=== PATIENT | female | born 1960 | race Caucasian/White ===

== ENCOUNTER 2017-07-02 10:36 | Inpatient (IN) | payer MEDICARE ==
[~2017-07-02] VITALS: Ht 160 cm; Wt 125.9 kg
[2017-07-02] VITALS (7 sets, daily range): BP systolic 152–168; BP diastolic 68–78; PULSE 78–89; RESP 12–20; TEMP 97.9–98.4; O2SAT 92–98
--- NOTE | 2017-07-02 10:53 | PD ---
HPI Chief Complaint: Fall Time Seen by Provider: 10:40 Travel History International Travel<30 days: No Contact w/Intl Traveler<30days: No Traveled to known affect area: No History of Present Illness HPI Patient is a 57-year-old female presents emergency department via [facility] after having a slip and fall in the shower. Her initial history to me as she raised her hands over her head to wash her hair and she felt very dizzy like she was going to pass out, she tried to get out of the shower and slipped and fell hitting her head. Some time later the patient tells me she just had her knees buckled chronic pain and fell backwards and hit her head on the side of the tub. She denies any loss of consciousness only complains of some mild left shoulder pain at this time. Denies any use of blood thinners. PFSH Past Medical History Hx Anticoagulant Therapy: Yes Cardiovascular Problems: Yes Diabetes: Yes Social History Tobacco Use: No Allergies-Medications (Allergen,Severity, Reaction): Coded Allergies: No Known Allergies (Unverified , 07/02/17) Reported Meds & Prescriptions Reported Meds & Active Scripts Active Reported A Thru Z Select Multivit Tab (Multivit-Min/FA/Lycopen/Lutein) 1 Each Tablet 1 Tab PO DAILY Vitamin D3 (Cholecalciferol) 50,000 Unit Cap 50,000 Units PO WEEKLY 28 Days Zyrtec (Cetirizine HCl) 10 Mg Tablet 10 Mg PO DAILY Lantus Inj (Insulin Glargine) 100 Unit/Ml Inj 60 Units SQ HS Metoprolol Tartrate 25 Mg Tab 12.5 Mg PO DAILY Hydralazine HCl 50 Mg Tablet 50 Mg PO BID NEB Tamsulosin (Tamsulosin HCl) 0.4 Mg Cap 0.4 Mg PO HS Review of Systems Except as stated in HPI: all other systems reviewed are Neg Physical Exam Narrative GENERAL: Well-developed morbidly obese female in no obvious distress. Immobilized on a long spineboard, no cervical collar EMS states secondary to neck size. SKIN: Small laceration to the posterior occiput as below. HEAD: No raccoons eyes no sanchez signs, there is some blood in the posterior aspect and after extensive examination could not locate the patient's laceration. Dr. Hunt's arrived shaven part of the patient's head and located 2 cm laceration just beneath the skin fold on the patient's occiput. Normocephalic. EYES: Pupils equal and round. No scleral icterus. No injection or drainage. ENT: No nasal bleeding or discharge. Mucous membranes pink and moist. NECK: Trachea midline. No JVD. CARDIOVASCULAR: Regular rate and rhythm. No murmur appreciated. RESPIRATORY: No accessory muscle use. Clear to auscultation. Breath sounds equal bilaterally. GASTROINTESTINAL: Abdomen soft, non-tender, nondistended. Hepatic and splenic margins not palpable. MUSCULOSKELETAL: No obvious deformities. Patient has full nontender range of motion of all 4 extremities. No tenderness at the shoulder elbow wrist hands hips knees and ankles or feet. Exam of the extremities is somewhat limited by patient habitus. No clubbing. No cyanosis. No edema. NEUROLOGICAL: Awake and alert. Cranial nerves II through XII are grossly intact and nonfocal, 5 out of 5 strength in all 4 extremities, cerebellar testing negative. PSYCHIATRIC: Appropriate mood and affect; insight and judgment normal. Data Data Last Documented VS Vital Signs Date Time Temp Pulse Resp B/P Pulse Ox O2 Delivery O2 Flow Rate FiO2 07/02/17 10:53 94 Room Air 07/02/17 10:39 98.4 81 16 164/74 Orders Electrocardiogram (07/02/17 10:40) Complete Blood Count With Diff (07/02/17 10:40) Comprehensive Metabolic Panel (07/02/17 10:40) Ckmb (Isoenzyme) Profile (07/02/17 10:40) Troponin I (07/02/17 10:40) Chest, Single Ap (07/02/17 10:40) Ct Brain W/O Iv Contrast(Rout) (07/02/17 10:40) Ct Cerv Spine W/O Contrast (07/02/17 10:40) Ecg Monitoring (07/02/17 10:40) Iv Access Insert/Monitor (07/02/17 10:40) Oximetry (07/02/17 10:40) CKMB (07/02/17 10:45) CKMB% (07/02/17 10:45) Consult Neurosurgery (07/02/17 ) Act Partial Throm Time (Ptt) (07/02/17 12:43) Prothrombin Time / Inr (Pt) (07/02/17 12:43) (Hub Use Only)Inp Phy Cons/Ref (07/02/17 ) Vascular Access Team Consult/P PRN (07/02/17 13:13) Vascular Poc Ultrasound (07/02/17 ) Admit Order (Ed Use Only) (07/02/17 ) Labs Laboratory Tests Test 07/02/17 10:45 White Blood Count 5.1 TH/MM3 Red Blood Count 4.54 MIL/MM3 Hemoglobin 11.4 GM/DL Hematocrit 36.0 % Mean Corpuscular Volume 79.3 FL Mean Corpuscular Hemoglobin 25.1 PG Mean Corpuscular Hemoglobin 31.6 % Concent Red Cell Distribution Width 17.9 % Platelet Count 139 TH/MM3 Mean Platelet Volume 8.7 FL Neutrophils (%) (Auto) 78.2 % Lymphocytes (%) (Auto) 11.8 % Monocytes (%) (Auto) 6.8 % Eosinophils (%) (Auto) 3.0 % Basophils (%) (Auto) 0.2 % Neutrophils # (Auto) 4.0 TH/MM3 Lymphocytes # (Auto) 0.6 TH/MM3 Monocytes # (Auto) 0.3 TH/MM3 Eosinophils # (Auto) 0.2 TH/MM3 Basophils # (Auto) 0.0 TH/MM3 CBC Comment DIFF FINAL Differential Comment Sodium Level 137 MEQ/L Potassium Level 4.7 MEQ/L Chloride Level 98 MEQ/L Carbon Dioxide Level 30.0 MEQ/L Anion Gap 9 MEQ/L Blood Urea Nitrogen 23 MG/DL Creatinine 1.05 MG/DL Estimat Glomerular Filtration 54 ML/MIN Rate Random Glucose 227 MG/DL Calcium Level 9.5 MG/DL Total Bilirubin 0.5 MG/DL Aspartate Amino Transf 49 U/L (AST/SGOT) Alanine Aminotransferase 30 U/L (ALT/SGPT) Alkaline Phosphatase 87 U/L Total Creatine Kinase 574 U/L Creatine Kinase MB 16.3 NG/ML Creatine Kinase MB % 2.8 % Troponin I 0.02 NG/ML Total Protein 7.1 GM/DL Albumin 3.2 GM/DL [facility] Medical Decision Making Medical Screen Exam Complete: Yes Emergency Medical Condition: Yes Differential Diagnosis Intracranial hemorrhage, neck injury, coagulopathy. Narrative Course Patient seen and examined by me. Neurologically intact. Slip and fall vs pre- syncopal event. With small SAH discussed with Dr. Chung and will admit to Dr. Blackwell in ICU. Blood pressure platelet count coagulation within normal limits. Critical Care Narrative Aggregate critical care time was 31 minutes. Time to perform other separately billable procedures was not included in the critical care time. My time did not include minutes spent treating any other patients simultaneously or on activities that did not directly contribute to the patient's treatment. The services I provided to this patient were to treat and/or prevent clinically significant deterioration that could result in: , disability, organ failure I provided critical care services requiring my management, as noted below: Chart data review, documentation time, medication orders and management, vital sign assessments/reviewing monitor data, ordering and reviewing lab tests, ordering and interpreting/reviewing x-rays and diagnostic studies, care of the patient and discussion of the patient with the admitting physicians. Diagnosis Primary Impression: Traumatic subarachnoid hemorrhage Additional Impressions: Scalp laceration DM (diabetes mellitus) Morbid obesity Gait instability Fall Admitting Information Admitting Physician Requests: Admit Condition: Stable Blu Guerra MD Jul 02, 2017 10:53
[2017-07-02 11:06] LABS: BASOPHIL % 0.2 % (0.0-2.0); EOSINOPHIL # 0.2 TH/MM3 (0-0.4); HEMO FLAGS DIFF FINAL; LYMPH % 11.8 % (9.0-44.0); LYMPHOCYTE # 0.6 TH/MM3 (1.0-4.8); MEAN CELL VOLUME 79.3 FL (80.0-100.0); MEAN CORPUSCULAR HEMOGLOBIN 25.1 PG (27.0-34.0); MEAN CORPUSCULAR HGB CONC 31.6 % (32.0-36.0); MONO % 6.8 % (0.0-8.0); NEUT % 78.2 % (16.0-70.0); PLATELET COUNT 139 TH/MM3 (150-450); RED BLOOD COUNT 4.54 MIL/MM3 (4.00-5.30); RED CELL DISTRIBUTION WIDTH 17.9 % (11.6-17.2); WHITE BLOOD COUNT 5.1 TH/MM3 (4.0-11.0)
--- NOTE | 2017-07-02 11:15 | RADRPT ---
EXAM DATE/TIME: 07/02/2017 10:49 [facility] COMPARISON: No previous studies available for comparison. INDICATIONS : Palpitations. Right side body pain after fall. MEDICAL HISTORY : Diabetes. Stroke. SURGICAL HISTORY : None. ENCOUNTER: Initial ACUITY: 1 day PAIN SCORE: 10/10 LOCATION: Bilateral chest FINDINGS: Rotated and underinflated portable AP view of the chest demonstrates a normal-sized cardiac silhouett e. Asymmetric density of the lung root is likely related to rotation. There is atelectasis at the l molly bases. No effusion, consolidation, or pneumothorax is identified. Bones and soft tissues demonstr ate no acute finding. EKG lines overlie the patient. CONCLUSION: Rotated and underinflated examination without an acute finding identified. Vishal Prasad MD on July 02, 2017 at 11:13 Board Certified Radiologist. This report was verified electronically.
[2017-07-02] MEDS ORDERED: [UNRECOGNIZED DRUG - CODE] PO (11:18)
[2017-07-02] MEDS ORDERED: TAMS0.4C4 PO (11:18)
[2017-07-02] MEDS ORDERED: METO25TA3 PO (11:18)
[2017-07-02] MEDS ORDERED: HYDR-3800 PO (11:18)
[2017-07-02] MEDS ORDERED: CETI-1 PO (11:18)
[2017-07-02] MEDS ORDERED: LANTUS2P SQ (11:18)
[2017-07-02] MEDS ORDERED: CHOL1CAP34 PO (11:18)
[2017-07-02 11:21] LABS: ALT (GPT) 30 U/L (10-53)
[2017-07-02 11:27] LABS: ALKALINE PHOSPHATASE 87 U/L (45-117); ANION GAP 9 MEQ/L (5-15); AST (GOT) 49 U/L (15-37); BLOOD UREA NITROGEN 23 MG/DL (7-18); CHLORIDE 98 MEQ/L (98-107); CREATINE KINASE 574 U/L (26-192); GLOMERULAR FILTRATION RATE 54 ML/MIN (>89); SODIUM (NA) 137 MEQ/L (136-145); TOTAL BILIRUBIN ADULT 0.5 MG/DL (0.2-1.0)
[2017-07-02 11:29] LABS: POTASSIUM 4.7 MEQ/L (3.5-5.1)
[2017-07-02 11:41] LABS: CKMB 16.3 NG/ML (0.5-3.6)
--- NOTE | 2017-07-02 11:54 | RADRPT ---
EXAM DATE/TIME: 07/02/2017 11:20 [facility] COMPARISON: No previous studies available for comparison. INDICATIONS : Trauma. Fell in the shower. Right posterior head laceration. RADIATION DOSE: 56.39 CTDIvol (mGy) MEDICAL HISTORY : Cardiovascular disease. Diabetes mellitus type 2. SURGICAL HISTORY : Craniotomy. ENCOUNTER: Initial ACUITY: 1 day PAIN SCALE: 8/10 LOCATION: Right cranial TECHNIQUE: Multiple contiguous axial images were obtained of the head. Using automated exposure control and adj ustment of the mA and/or kV according to patient size, radiation dose was kept as low as reasonably a chievable to obtain optimal diagnostic quality images. DICOM format image data is available electro nically for review and comparison. FINDINGS: CEREBRUM: There is generalized atrophy. Ventricles are normal in size. Trace amount of acute blood products, li mike subarachnoid space layering along the sulci in the left parietal high convexity. There is perive ntricular white matter low-attenuation bilaterally. No midline shift, mass lesion, hemorrhage or acut e infarction. No extra-axial fluid collections are seen. POSTERIOR FOSSA: The cerebellum and brainstem demonstrate no acute finding. The 4th ventricle is midline. The cerebe llopontine angle is unremarkable. EXTRACRANIAL: Visualized sinuses are clear. There is a right posterior parietal occipital region scalp hematoma artem suring approximately 5 cm. There is subcutaneous air. SKULL: There has been prior left skull surgery with defect remaining. No evidence of skull fracture. CONCLUSION: 1. Trace acute subarachnoid blood products layering along the sulci in the left parietal high convexi ty. 2. Approximate 5 cm right posterior scalp hematoma with laceration. No fracture is identified. Vishal Prasad MD on July 02, 2017 at 11:49 Board Certified Radiologist. This report was verified electronically.
--- NOTE | 2017-07-02 12:01 | RADRPT ---
EXAM DATE/TIME: 07/02/2017 11:21 [facility] COMPARISON: No previous studies available for comparison. INDICATIONS : Trauma. Fell in the shower. Right posterior head laceration. RADIATION DOSE: 46.30 CTDIvol (mGy) MEDICAL HISTORY : Cardiovascular disease. Diabetes mellitus type 2. SURGICAL HISTORY : None. ENCOUNTER: Initial ACUITY: 1 day PAIN SCALE: 7/10 LOCATION: Right neck TECHNIQUE: Volumetric scanning of the cervical spine was performed. Multiplanar reconstructions in the sagittal, coronal and oblique axial planes were performed. Using automated exposure control and adjustment o f the mA and/or kV according to patient size, radiation dose was kept as low as reasonably achievable to obtain optimal diagnostic quality images. DICOM format image data is available electronically f or review and comparison. FINDINGS: VERTEBRAE: Normal vertebral body height. ALIGNMENT: No evidence of subluxation. C2-C3: The bony spinal canal is normal in size. No evidence of disc bulge or herniation. The neural forami na are bilaterally patent. C3-C4: The bony spinal canal is normal in size. No evidence of disc bulge or herniation. The neural forami na are bilaterally patent. C4-C5: The bony spinal canal is normal in size. No evidence of disc bulge or herniation. The neural forami na are bilaterally patent. C5-C6: The bony spinal canal is normal in size. No evidence of disc bulge or herniation. The neural forami na are bilaterally patent. C6-C7: The bony spinal canal is normal in size. No evidence of disc bulge or herniation. The neural forami na are bilaterally patent. C7-T1: The bony spinal canal is normal in size. No evidence of disc bulge or herniation. The neural forami na are bilaterally patent. CONCLUSION: 1. No acute findings. Mild degenerative change. Narinder Martinez MD on July 02, 2017 at 11:57 Board Certified Radiologist. This report was verified electronically.
[2017-07-02] MEDS ORDERED: MORPHINE SULFATE 8 MG/ML INJ IV PUSH ONE (13:45)
[2017-07-02] MEDS ORDERED: LIDOCAINE 1%/EPINEPHrine 1:100,000 SOLN 20 ML VIAL INFIL ONE (13:45)
--- NOTE | 2017-07-02 13:48 | HHI.HP ---
HPI Service Critical Care Medicine Primary Care Physician Unknown Admission Diagnosis SAH Diagnosis: Travel History International Travel<30 Days: No Contact w/Intl Traveler <30 Da: No Traveled to Known Affected Are: No History of Present Illness 57 yo female with PMH of DM, HTN, obesity states she was in the shower today when "her legs gave out on her" and she fell and hit her head. She denies loss of consciousness. She denies headache, chest pain, shortness of breath, abdominal pain, flank pain, vomiting. No noted seizure activity, no loss of bowel or bladder continence. Ct brain demonstrates trace amount of subarachnoid hemorrhage in the high L parietal convexity and right posterior scalp hematoma. Patient denies anticoagulant use. All other review of systems negative. Past Family Social History Allergies: Coded Allergies: No Known Allergies (Unverified , 07/02/17) Past Medical History Hypertension Diabetes Seasonal allergies Vitamin D deficiency Obesity Gastritis Past Surgical History Tonsillectomy Left carpal tunnel release Cholecystectomy Lumbar surgery 1999 Previous left craniotomy for "a blocked artery" Reported Medications Tamulosin 0.4 mEq by mouth daily at bedtime Metoprolol 12.5 mg by mouth daily Hydralazine 50 mg by mouth twice a day Lantus 60 units subcutaneous daily at bedtime Multivitamin 1 tab daily Zyrtec 10 mg po daily Vitamin D3 50,000 units by mouth weekly Family History Father had lung cancer, prostate cancer, skin cancer removed. at age 79 from myocardial infarction Mother had diabetes and hypertension Social History Smokes a half pack of cigarettes per day for 40 years Drink alcohol occasionally Denies illicit drug use and lives with her . Physical Exam Vital Signs Vital Signs Date Time Temp Pulse Resp B/P Pulse Ox O2 Delivery O2 Flow Rate FiO2 07/02/17 10:53 94 Room Air 07/02/17 10:39 98.4 81 16 164/74 95 Physical Exam Temp 98.4 pulse 88 respirations 16 blood pressure 152/78 GENERAL: Well-nourished, well-developed patient who is laying in the ED stretcher in left lateral decubitus position, tearful, distraught because she has to urinate. SKIN: Warm and dry. HEAD: Atraumatic. Normocephalic. EYES: Pupils equal and round, 2 mm reactive bilaterally. No scleral icterus. No injection or drainage. ENT: No nasal bleeding or discharge. Mucous membranes pink and moist. NECK: Trachea midline. No JVD. CARDIOVASCULAR: Heart sounds are distant but there is regular rate and rhythm with no murmurs rubs or gallops appreciated. RESPIRATORY: Clear to auscultation bilaterally. GASTROINTESTINAL: Abdomen obese, soft, non-tender, nondistended. Bowel sounds present. MUSCULOSKELETAL: Extremities without clubbing, cyanosis. NEUROLOGICAL: Awake and alert. No obvious cranial nerve deficits. Extraocular movements intact. Oral tongue protrusion. Five out of 5 muscle strength in the arms and legs. Normal speech. Oriented to person, year, circumstance Laboratory Laboratory Tests Test 07/02/17 10:45 White Blood Count 5.1 Red Blood Count 4.54 Hemoglobin 11.4 Hematocrit 36.0 Mean Corpuscular Volume 79.3 Mean Corpuscular Hemoglobin 25.1 Mean Corpuscular Hemoglobin 31.6 Concent Red Cell Distribution Width 17.9 Platelet Count 139 Mean Platelet Volume 8.7 Neutrophils (%) (Auto) 78.2 Lymphocytes (%) (Auto) 11.8 Monocytes (%) (Auto) 6.8 Eosinophils (%) (Auto) 3.0 Basophils (%) (Auto) 0.2 Neutrophils # (Auto) 4.0 Lymphocytes # (Auto) 0.6 Monocytes # (Auto) 0.3 Eosinophils # (Auto) 0.2 Basophils # (Auto) 0.0 CBC Comment DIFF FINAL Differential Comment Sodium Level 137 Potassium Level 4.7 Chloride Level 98 Carbon Dioxide Level 30.0 Anion Gap 9 Blood Urea Nitrogen 23 Creatinine 1.05 Estimat Glomerular Filtration 54 Rate Random Glucose 227 Calcium Level 9.5 Total Bilirubin 0.5 Aspartate Amino Transf 49 (AST/SGOT) Alanine Aminotransferase 30 (ALT/SGPT) Alkaline Phosphatase 87 Total Creatine Kinase 574 Creatine Kinase MB 16.3 Creatine Kinase MB % 2.8 Troponin I 0.02 Total Protein 7.1 Albumin 3.2 Result Diagram: 07/02/17 1045 07/02/17 1045 Assessment and Plan Assessment and Plan NEURO: Fall Scalp hematoma Scalp laceration Left parietal traumatic subarachnoid hemorrhage, traumatic CT C-spine negative for acute fracture. Mild degenerative changes CT brain 07/02/17trace subarachnoid hemorrhage left parietal convex city. right posterior hematoma Laceration repaired in ED 07/02. Neurosurgery following, Dr. Chung Repeat CT brain 07/03 Sodium normal. RESP: On room air CV: Hypertension Labetalol as needed for systolic blood pressure greater than 160. Continue tamulosin 0.4 mg by mouth daily at bedtime Continue metoprolol 12.5 mg by mouth daily Continue hydralazine 50 mg by mouth twice a day GI: Morbid obesity Gastritis Protonix 40 mg IV daily for stress ulcer prophylaxis. Bedside swallow assess. Heart healthy diet 1800 ADA FEN/RENAL: Mild renal insufficiency, baseline renal function unknown. Mike inserted in ED. Monitor intake and output. D/c Mike in am. CPK mildly elevated at 574. Repeat BMP and CPK in a.m. 0.9 NaCl at 84 mL per hour ID: Monitor for signs and symptoms of infection. HEME: Chronic anemia Thrombocytopenia, likely chronic Obtain coags Patient is reportedly not on chronic anti-coagulation Obtain CBC in a.m. ENDO: Type 2 Diabetes mellitus Lantus 40 units subcutaneous daily at bedtime, increase to home dose tomorrow if eating well. Medium -dose insulin sliding ac/hs. PROPH: SCDs for DVT prophylaxis. No pharmacologic DVT prophylaxis currently due to acute subarachnoid hemorrhage. Protonix 40 mg IV daily for stress ulcer prophylaxis. ACCESS: Peripheral IV providing adequate access at this time. Out of bed with assistance. PT evaluate and treat Full code Level III H&P Elizabeth Blackwell MD Jul 02, 2017 13:48
[2017-07-02] MEDS ORDERED: LACTULOSE SYRUP 20 GM/30 ML CUP PO PRN (14:00)
[2017-07-02] MEDS ORDERED: RESP: ALBUTEROL 2.5 MG/IPRATROPIUM 0.5 MG NEB (PRN) INH (14:00)
[2017-07-02] MEDS ORDERED: MISCELLANEOUS NURSING INFORMATION XX SCH (14:00)
[2017-07-02] MEDS ORDERED: BISACODYL 10 MG SUPP RECTAL PRN (14:00)
[2017-07-02] MEDS ORDERED: ONDANSETRON HCL 4 MG/2 ML VIAL IV PRN (14:00)
[2017-07-02] MEDS ORDERED: CHLORHEXIDINE GLUCONATE 2 % 1 PACK (2 CLOTHS) TOP PRN (14:00)
--- NOTE | 2017-07-02 14:07 | PD.CONS ---
History of Present Illness Service Neurosurgery Consult Requested By Dr. Guerra-emergency room Reason for Consult Traumatic brain injury Primary Care Physician Unknown Diagnoses: History of Present Illness 57-year-old female states that she fell backwards out of her shower today because her legs gave out on her. She does not believe that she lost consciousness. She had no headache, chest pain, shortness of breath, dizziness , vertigo immediately prior to the incident. No seizure activity reported. She complains of posterior scalp pain. She has a history of diabetic neuropathy with chronic lower extremity numbness and paresthesias, but no acute upper or lower extremity sensorimotor symptoms since her injury. She does have complained of moderate neck pain. She has chronic back pain. No complaint of blurred vision and diplopia speech difficulty confusion and memory loss. Review of Systems Constitutional: DENIES: Fever, Dizziness Eyes: DENIES: Blurred vision, Diplopia Ears, nose, mouth, throat: DENIES: Hearing loss, Vertigo Respiratory: DENIES: Shortness of breath Cardiovascular: DENIES: Chest pain, Palpitations, Syncope Gastrointestinal: DENIES: Abdominal pain, Diarrhea, Nausea, Vomiting Musculoskeletal: COMPLAINS OF: Joint pain, Muscle aches, Back pain, Neck pain Hematologic/lymphatic: DENIES: Bruising Neurologic: COMPLAINS OF: Headache, Paresthesias, DENIES: Abnormal gait, Seizures, Speech Problems Psychiatric: DENIES: Anxiety, Confusion Past Family Social History Allergies: Coded Allergies: No Known Allergies (Unverified , 07/02/17) Past Medical History Hypertension Diabetes Hypercholesterolemia Cardiomyopathy Gastritis Questionable peripheral vascular disease Past Surgical History Cholecystectomy Lumbar surgery 1999 Previous left craniotomy for "a blocked artery" Tonsillectomy Left carpal tunnel release Reported Medications Reported Meds & Active Scripts Active Reported A Thru Z Select Multivit Tab (Multivit-Min/FA/Lycopen/Lutein) 1 Each Tablet 1 Tab PO DAILY Vitamin D3 (Cholecalciferol) 50,000 Unit Cap 50,000 Units PO WEEKLY 28 Days Zyrtec (Cetirizine HCl) 10 Mg Tablet 10 Mg PO DAILY Lantus Inj (Insulin Glargine) 100 Unit/Ml Inj 60 Units SQ HS Metoprolol Tartrate 25 Mg Tab 12.5 Mg PO DAILY Hydralazine HCl 50 Mg Tablet 50 Mg PO BID NEB Tamsulosin (Tamsulosin HCl) 0.4 Mg Cap 0.4 Mg PO HS Family History Negative cardiac disease, cancer. Social History This with her . Recently moved to [place]. Smokes less than 1 pack cigarettes a day for many years. Does not drink alcohol Physical Exam Vital Signs Vital Signs Date Time Temp Pulse Resp B/P Pulse Ox O2 Delivery O2 Flow Rate FiO2 07/02/17 10:53 94 Room Air 07/02/17 10:39 98.4 81 16 164/74 95 Physical Exam GENERAL: Pleasant obese lady, examined in the emergency room. SKIN: Moderate areas of ecchymosis and scaling lesions over the right and left posterior distal calf. Moderate lower extremity varicosities. HEAD: Approximate 3 cm laceration over the right occipital scalp with moderate edema. EYES: Sclerae are clear and nonicteric ENT: Edentulous. No facial edema or ecchymosis. Tympanic membranes clear. No CSF otorrhea or rhinorrhea NECK: Moderate diffuse neck tenderness. Limited range of motion. CARDIOVASCULAR: Regular rate and rhythm without murmurs, gallops, or rubs. RESPIRATORY: Clear to auscultation. Breath sounds equal bilaterally. No wheezes , rales, or rhonchi. GASTROINTESTINAL: Abdomen soft, non-tender, nondistended. No hepato-splenomegaly , or palpable masses. No guarding. MUSCULOSKELETAL: Moderate lower extremity edema with mild to moderate varicosities. Posterior tibial pulses are not palpable, 2+ dorsalis pedis. NEUROLOGICAL: Awake and alert Oriented X 3 Speech is clear Conversant and appropriate Follow simple commands well Answers questions appropriately Reasonable judgment and insight Recent and remote memory are intact No evidence of anxiety or depression Pupils are equal and reactive to accommodation. Extra-ocular movements, visual root to confrontation, facial sensorimotor, tongue, palate, sternocleidomastoid testing, hearing to finger rub testing, and bilateral shoulder shrug are all intact. Sensation is intact to light touch in all extremities except for moderate numbness and paresthesia in the right and left distal lower extremity. She states this is chronic. Strength normal major flexion and extension groups all extremities Magen's absent bilaterally No ankle clonus Plantar responses absent bilateral Fine motor movements intact upper extremities Laboratory Laboratory Tests Test 07/02/17 10:45 White Blood Count 5.1 Red Blood Count 4.54 Hemoglobin 11.4 Hematocrit 36.0 Mean Corpuscular Volume 79.3 Mean Corpuscular Hemoglobin 25.1 Mean Corpuscular Hemoglobin 31.6 Concent Red Cell Distribution Width 17.9 Platelet Count 139 Mean Platelet Volume 8.7 Neutrophils (%) (Auto) 78.2 Lymphocytes (%) (Auto) 11.8 Monocytes (%) (Auto) 6.8 Eosinophils (%) (Auto) 3.0 Basophils (%) (Auto) 0.2 Neutrophils # (Auto) 4.0 Lymphocytes # (Auto) 0.6 Monocytes # (Auto) 0.3 Eosinophils # (Auto) 0.2 Basophils # (Auto) 0.0 CBC Comment DIFF FINAL Differential Comment Sodium Level 137 Potassium Level 4.7 Chloride Level 98 Carbon Dioxide Level 30.0 Anion Gap 9 Blood Urea Nitrogen 23 Creatinine 1.05 Estimat Glomerular Filtration 54 Rate Random Glucose 227 Calcium Level 9.5 Total Bilirubin 0.5 Aspartate Amino Transf 49 (AST/SGOT) Alanine Aminotransferase 30 (ALT/SGPT) Alkaline Phosphatase 87 Total Creatine Kinase 574 Creatine Kinase MB 16.3 Creatine Kinase MB % 2.8 Troponin I 0.02 Total Protein 7.1 Albumin 3.2 Result Diagram: 07/02/17 1045 07/02/17 1045 Imaging 07/02/17 CT scan head and cervical spine images reviewed by the undersigned. Agree with findings as noted below: Head CT 07/02/17 1040 Signed Impressions: Service Date/Time: Sunday, July 02, 2017 11:20 - CONCLUSION: 1. Trace acute subarachnoid blood products layering along the sulci in the left parietal high convexity. 2. Approximate 5 cm right posterior scalp hematoma with laceration. No fracture is identified. Vishal rPasad MD Chest X-Ray 07/02/17 1040 Signed Impressions: Service Date/Time: Sunday, July 02, 2017 10:49 - CONCLUSION: Rotated and underinflated examination without an acute finding identified. Vishal Prasad MD Cervical Spine CT 07/02/17 1040 Signed Impressions: Service Date/Time: Sunday, July 02, 2017 11:21 - CONCLUSION: 1. No acute findings. Mild degenerative change. Narinder Martinez MD Assessment and Plan Assessment and Plan Impression: 1. Traumatic brain injury 2. Right occipital scalp laceration Plan: Findings were discussed with the patient in the emergency room. Discussed with emergency room physician. Admit to intensive care unit Close vital signs and neurologic checks Non-chemical DVT prophylaxis Ulcer prophylaxis. Previous history of gastritis. Out of bed as tolerated Physical therapy assessment for gait Continue antihypertensive medications. Continue diabetic medications with insulin sliding scale. Follow-up CT scan head 07/03/17 Yasmani Chung MD Jul 02, 2017 14:07
[2017-07-02] MEDS: SODIUM CHLOR 0.9% 1000 ML INJ 1,000 ML IV SCH (14:54)
[2017-07-02] MEDS ORDERED: SENNOSIDES 8.6 MG TAB PO PRN (15:00)
[2017-07-02] MEDS ORDERED: MAGNESIUM HYDROXIDE SUSP 30 ML CUP PO PRN (15:00)
--- NOTE | 2017-07-02 15:01 | PD ---
Physical Exam Date Seen by Provider: Jul 02, 2017 Time Seen by Provider: 14:59 Narrative 57-year-old female that presents to the ED for evaluation of head injury. I was asked my attending to repair laceration. Please refer to his note. Data Data Last Documented VS Vital Signs Date Time Temp Pulse Resp B/P Pulse Ox O2 Delivery O2 Flow Rate FiO2 07/02/17 10:53 94 Room Air 07/02/17 10:39 98.4 81 16 164/74 Orders Electrocardiogram (07/02/17 10:40) Complete Blood Count With Diff (07/02/17 10:40) Comprehensive Metabolic Panel (07/02/17 10:40) Ckmb (Isoenzyme) Profile (07/02/17 10:40) Troponin I (07/02/17 10:40) Chest, Single Ap (07/02/17 10:40) Ct Brain W/O Iv Contrast(Rout) (07/02/17 10:40) Ct Cerv Spine W/O Contrast (07/02/17 10:40) Ecg Monitoring (07/02/17 10:40) Iv Access Insert/Monitor (07/02/17 10:40) Oximetry (07/02/17 10:40) CKMB (07/02/17 10:45) CKMB% (07/02/17 10:45) Consult Neurosurgery (07/02/17 ) Act Partial Throm Time (Ptt) (07/02/17 12:43) Prothrombin Time / Inr (Pt) (07/02/17 12:43) (Hub Use Only)Inp Phy Cons/Ref (07/02/17 ) Vascular Access Team Consult/P PRN (07/02/17 13:13) Vascular Poc Ultrasound (07/02/17 ) Admit Order (Ed Use Only) (07/02/17 ) Labs Laboratory Tests Test 07/02/17 10:45 White Blood Count 5.1 TH/MM3 Red Blood Count 4.54 MIL/MM3 Hemoglobin 11.4 GM/DL Hematocrit 36.0 % Mean Corpuscular Volume 79.3 FL Mean Corpuscular Hemoglobin 25.1 PG Mean Corpuscular Hemoglobin 31.6 % Concent Red Cell Distribution Width 17.9 % Platelet Count 139 TH/MM3 Mean Platelet Volume 8.7 FL Neutrophils (%) (Auto) 78.2 % Lymphocytes (%) (Auto) 11.8 % Monocytes (%) (Auto) 6.8 % Eosinophils (%) (Auto) 3.0 % Basophils (%) (Auto) 0.2 % Neutrophils # (Auto) 4.0 TH/MM3 Lymphocytes # (Auto) 0.6 TH/MM3 Monocytes # (Auto) 0.3 TH/MM3 Eosinophils # (Auto) 0.2 TH/MM3 Basophils # (Auto) 0.0 TH/MM3 CBC Comment DIFF FINAL Differential Comment Sodium Level 137 MEQ/L Potassium Level 4.7 MEQ/L Chloride Level 98 MEQ/L Carbon Dioxide Level 30.0 MEQ/L Anion Gap 9 MEQ/L Blood Urea Nitrogen 23 MG/DL Creatinine 1.05 MG/DL Estimat Glomerular Filtration 54 ML/MIN Rate Random Glucose 227 MG/DL Calcium Level 9.5 MG/DL Total Bilirubin 0.5 MG/DL Aspartate Amino Transf 49 U/L (AST/SGOT) Alanine Aminotransferase 30 U/L (ALT/SGPT) Alkaline Phosphatase 87 U/L Total Creatine Kinase 574 U/L Creatine Kinase MB 16.3 NG/ML Creatine Kinase MB % 2.8 % Troponin I 0.02 NG/ML Total Protein 7.1 GM/DL Albumin 3.2 GM/DL [facility] Medical Record Reviewed: Yes Supervised Visit with LOYD: No Procedures Procedure Narrative LACERATION LOCATION: Occipital head LENGTH: 2 cm NUMBER OF STITCHES/MALACHI: 7 Malachi REPAIR: The area of the laceration was prepped with Betadine and sterilely draped. The laceration was infiltrated with 1% Xylocaine. The wound was copiously irrigated and explored without evidence of foreign body, tendon injury or neurovascular injury. The wound was closed using sterile stapler. This was a 1 layer repair. A sterile dressing was applied. The patient was advised to keep the dressing clean and dry. Patient tolerated the procedure well. Mauri Byers Jul 02, 2017 15:01
[2017-07-02] MEDS: PANTOPRAZOLE SODIUM 40 MG VIAL IV SCH (15:02)
[2017-07-02] MEDS ORDERED: LABETALOL HCL 100 MG/20 ML VIAL IV PUSH PRN (15:30)
[2017-07-02 15:45] LABS: PROTHROMBIN TIME - PATIENT 10.8 SEC (9.8-11.6)
[2017-07-02] MEDS ORDERED: DEXTROSE 50% IN WATER 50 ML VIAL(D50) IV PRN (15:45)
[2017-07-02] MEDS ORDERED: GLUCAGON 1 MG/ML VIAL OTHER PRN (15:45)
[2017-07-02] MEDS: INSULIN ASPART SUPPLEMENTAL SCALE SQ SCH ×2 (17:52→21:16)
[2017-07-02] MEDS ORDERED: hydrALAZINE HCL 50 MG TAB PO SCH (20:00)
[2017-07-02] MEDS ORDERED: INSULIN DETEMIR 100 UNITS/ML VIAL SQ SCH (21:00)
[2017-07-02] MEDS: TAMSULOSIN HCL 0.4 MG CAP PO SCH (21:14)
[2017-07-02] MEDS: hydrALAZINE HCL 50 MG TAB PO SCH (21:14)
[2017-07-02] MEDS: DOCUSATE SODIUM 50 MG/SENNA 8.6 MG TAB PO SCH (21:16)
[2017-07-02] MEDS: MORPHINE SULFATE 4 MG/ML INJ IV PRN (23:14)
[2017-07-03] VITALS (9 sets, daily range): BP systolic 131–172; BP diastolic 60–73; PULSE 80–94; RESP 14–24; TEMP 97.9–99; O2SAT 94–98
[2017-07-03] MEDS: SODIUM CHLOR 0.9% 1000 ML INJ 1,000 ML IV SCH ×2 (01:43→07:54)
[2017-07-03] MEDS: MORPHINE SULFATE 4 MG/ML INJ IV PRN ×6 (03:41→20:27)
[2017-07-03] MEDS: CHLORHEXIDINE GLUCONATE 2 % 1 PACK (2 CLOTHS) TOP SCH (04:00)
[2017-07-03 05:21] LABS: BICARBONATE 33.5 MEQ/L (21.0-32.0); POTASSIUM 3.9 MEQ/L (3.5-5.1)
[2017-07-03 05:31] LABS: AUTOMATED NEUTROPHIL # 3.9 TH/MM3 (1.8-7.7); BASOPHIL # 0.1 TH/MM3 (0-0.2); BASOPHIL % 1.2 % (0.0-2.0); EOSINOPHIL # 0.2 TH/MM3 (0-0.4); EOSINOPHIL % 3.7 % (0.0-4.0); HEMATOCRIT 32.8 % (35.0-46.0); HEMO FLAGS DIFF FINAL; LYMPH % 13.5 % (9.0-44.0); LYMPHOCYTE # 0.7 TH/MM3 (1.0-4.8); MEAN CELL VOLUME 77.4 FL (80.0-100.0); MEAN CORPUSCULAR HEMOGLOBIN 25.6 PG (27.0-34.0); MONO % 6.9 % (0.0-8.0); NEUT % 74.7 % (16.0-70.0); PLATELET COUNT 101 TH/MM3 (150-450); RED BLOOD COUNT 4.24 MIL/MM3 (4.00-5.30); RED CELL DISTRIBUTION WIDTH 17.5 % (11.6-17.2); WHITE BLOOD COUNT 5.2 TH/MM3 (4.0-11.0)
[2017-07-03 05:45] LABS: CKMB 17.6 NG/ML (0.5-3.6)
[2017-07-03] MEDS: ACETAMINOPHEN 325 MG TAB PO PRN ×2 (05:59→10:54)
[2017-07-03] MEDS: INSULIN ASPART SUPPLEMENTAL SCALE SQ SCH ×4 (07:00→21:50)
[2017-07-03] MEDS ORDERED: METOPROLOL TARTRATE 25 MG TAB PO SCH (09:00)
[2017-07-03] MEDS: DOCUSATE SODIUM 50 MG/SENNA 8.6 MG TAB PO SCH ×2 (09:02→21:47)
[2017-07-03] MEDS: PANTOPRAZOLE SODIUM 40 MG VIAL IV SCH (09:02)
[2017-07-03] MEDS: hydrALAZINE HCL 50 MG TAB PO SCH ×2 (09:03→21:47)
--- NOTE | 2017-07-03 09:18 | HHI.NSPN ---
(Prabhakar Gutiérrez) History Chief Complaint: Headache, in a bit of a fog. (Prabhakar Gutiérrez) Interval History 07/02: 57-year-old female states that she fell backwards out of her shower today because her legs gave out on her. She does not believe that she lost consciousness. She had no headache, chest pain, shortness of breath, dizziness , vertigo immediately prior to the incident. No seizure activity reported. She complains of posterior scalp pain. She has a history of diabetic neuropathy with chronic lower extremity numbness and paresthesias, but no acute upper or lower extremity sensorimotor symptoms since her injury. She does have complained of moderate neck pain. She has chronic back pain. No complaint of blurred vision and diplopia speech difficulty confusion and memory loss. 07/03: The patient is awake and alert sitting up in a chair when seen this morning. She states that she is doing good but does have a headache. She did say as she was examined that she was in a bit of a fog. (Prabhakar Gutiérrez) System Review Comments Constitutional: Patient denies any fever or chills. Integumentary: Patient states she has a laceration to the back of the head. HEENT: Patient denies any visual or hearing problems. Respiratory: Patient denies any shortness of breath or productive cough. Cardiovascular: Patient denies any chest pain, palpitations or irregular heartbeat. Gastrointestinal: Patient denies any abdominal pain, nausea, vomiting or incontinence of stool. Genitourinary: Patient states she has a Mike catheter in place. Musculoskeletal: Patient complains of upper neck and chronic lower back pain. She also states she has chronic pain to the left arm. She denies any other extremity pain. Neurologic: Patient complains of a headache. She also has numbness to the distal fingertips of the right hand which is chronic and without change. She denies dizziness, tingling or other numbness. (Prabhakar Gutiérrez) Exam Results Vital Signs Date Time Temp Pulse Resp B/P Pulse Ox O2 Delivery O2 Flow Rate FiO2 07/03/17 07:38 94 Nasal Cannula 2.00 07/03/17 06:59 12 07/03/17 04:00 98.0 94 140/60 07/02/17 14:05 21 Intake and Output 07/02/17 07/02/17 07/03/17 08:00 16:00 00:00 Intake Total 240 ml Output Total 1400 ml Balance -1160 ml (Prabhakar Gutiérrez) Physical Examination GENERAL: Pleasant obese lady sitting in chair, no apparent distress, affect normal. SKIN: Abrasions noted to right side extremities healing w/o complication, peripheral vascular skin changes to bilateral lower legs with scaling lesions. HEENT: Right occipital scalp laceration edematous and approximated w/wenceslao moderately TTP. PERRLA, EOMI. No otorrhea or rhinorrhea noted. MMM & pink. NECK: Midline cervical spine moderately TTP, decreased ROM, neck supple, no JVD , trachea midline. CARDIOVASCULAR: S1S2 w/RRR w/o M/G/R, radial pulses 2+ bilaterally, unable to palpate pedal or posterior tibial pulses, cap refill < 2 sec, pitting edema bilateral lower extremities, bilateral peripheral vascular skin changes. Monitor is sinus rhythm w/o any ectopy noted. RESPIRATORY: CTAB w/o W/R/R, equal excursion, nonlaboured, on RA. GASTROINTESTINAL: Abdomen morbidly obese, nontender, bowel sounds not appreciated. GENITOURINARY: Mike catheter to BSD w/clear yellow urine. MUSCULOSKELETAL: GRIMM w/o difficulty, left arm TTP chronically, RUE mildly TTP from fall. NEUROLOGICAL: AAOx3. Speech clear & appropriate although slow in responding to more complex issues such as what happened. Follows simple commands w/o difficulty. CN II-XII grossly intact. Sensation to light touch intact to all extremities except decreased to distal fingertips of right hand distal lower legs. Motor strength 5/5 to all major flexion and extension muscle group. (Prabhakar Gutiérrze) Lab, Micro, Other Results Allergies Coded Allergies Type Severity Reaction Last Updated Verified No Known Allergies 07/02/17 No Recent Impressions Head CT 07/02/17 1040 Signed Impressions: Service Date/Time: Sunday, July 02, 2017 11:20 - CONCLUSION: 1. Trace acute subarachnoid blood products layering along the sulci in the left parietal high convexity. 2. Approximate 5 cm right posterior scalp hematoma with laceration. No fracture is identified. Vishal Prasad MD Chest X-Ray 07/02/17 1040 Signed Impressions: Service Date/Time: Sunday, July 02, 2017 10:49 - CONCLUSION: Rotated and underinflated examination without an acute finding identified. Vishal Prasad MD Cervical Spine CT 07/02/17 1040 Signed Impressions: Service Date/Time: Sunday, July 02, 2017 11:21 - CONCLUSION: 1. No acute findings. Mild degenerative change. Narinder Martinez MD 07/01/// 06:00 18:00 06:00 18:00 06:00 18:00 Intake Total 240 ml Output Total 1400 ml Balance -1160 ml Intake Oral 240 ml Output Urine Total 1400 ml # Bowel Movements 0 Laboratory Tests Test 07/02/17 07/02/17 07/03/17 10:45 14:45 04:33 White Blood Count 5.1 TH/MM3 5.2 TH/MM3 Red Blood Count 4.54 MIL/MM3 4.24 MIL/MM3 Hemoglobin 11.4 GM/DL 10.8 GM/DL Hematocrit 36.0 % 32.8 % Mean Corpuscular Volume 79.3 FL 77.4 FL Mean Corpuscular Hemoglobin 25.1 PG 25.6 PG Mean Corpuscular Hemoglobin 31.6 % 33.0 % Concent Red Cell Distribution Width 17.9 % 17.5 % Platelet Count 139 TH/MM3 101 TH/MM3 Mean Platelet Volume 8.7 FL 9.3 FL Neutrophils (%) (Auto) 78.2 % 74.7 % Lymphocytes (%) (Auto) 11.8 % 13.5 % Monocytes (%) (Auto) 6.8 % 6.9 % Eosinophils (%) (Auto) 3.0 % 3.7 % Basophils (%) (Auto) 0.2 % 1.2 % Neutrophils # (Auto) 4.0 TH/MM3 3.9 TH/MM3 Lymphocytes # (Auto) 0.6 TH/MM3 0.7 TH/MM3 Monocytes # (Auto) 0.3 TH/MM3 0.4 TH/MM3 Eosinophils # (Auto) 0.2 TH/MM3 0.2 TH/MM3 Basophils # (Auto) 0.0 TH/MM3 0.1 TH/MM3 CBC Comment DIFF FINAL DIFF FINAL Differential Comment Sodium Level 137 MEQ/L 137 MEQ/L Potassium Level 4.7 MEQ/L 3.9 MEQ/L Chloride Level 98 MEQ/L 97 MEQ/L Carbon Dioxide Level 30.0 MEQ/L 33.5 MEQ/L Anion Gap 9 MEQ/L 7 MEQ/L Blood Urea Nitrogen 23 MG/DL 18 MG/DL Creatinine 1.05 MG/DL 0.92 MG/DL Estimat Glomerular Filtration 54 ML/MIN 62 ML/MIN Rate Random Glucose 227 MG/DL 173 MG/DL Calcium Level 9.5 MG/DL 9.3 MG/DL Total Bilirubin 0.5 MG/DL Aspartate Amino Transf 49 U/L (AST/SGOT) Alanine Aminotransferase 30 U/L (ALT/SGPT) Alkaline Phosphatase 87 U/L Total Creatine Kinase 574 U/L 857 U/L Creatine Kinase MB 16.3 NG/ML 17.6 NG/ML Creatine Kinase MB % 2.8 % 2.1 % Troponin I 0.02 NG/ML Total Protein 7.1 GM/DL Albumin 3.2 GM/DL Prothrombin Time 10.8 SEC Prothromb Time International 1.0 RATIO Ratio Activated Partial 23.0 SEC Thromboplast Time Hematology Comments Vital Signs Date Time Temp Pulse Resp B/P Pulse Ox O2 Delivery O2 Flow Rate FiO2 07/03/17 07:38 94 Nasal Cannula 2.00 07/03/17 06:59 12 07/03/17 06:04 20 07/03/17 04:00 98.0 94 24 140/60 96 07/03/17 00:00 80 07/03/17 00:00 97.9 80 14 151/68 96 07/02/17 23:00 97.9 78 12 156/69 98 07/02/17 21:36 95 Nasal Cannula 2.00 07/02/17 19:28 78 18 168/73 95 Nasal Cannula 2 07/02/17 16:04 87 20 152/68 95 07/02/17 14:05 21 07/02/17 14:00 89 20 152/78 92 07/02/17 10:53 94 Room Air 07/02/17 10:39 98.4 81 16 164/74 95 (Prabhakar Gutiérrez) Medical Decision Making Impression and Plan Impression: 1. Traumatic brain injury 2. Right occipital scalp laceration CT brain pending. Patient doing well and remains neurologically intact. Plan: Discussed plan of care w/patient. Primary management per [employer] Operator/Hospitalist. Frequent neuro checks. Stat CT brain for any worsening neuro status. Non-chemical DVT prophylaxis Ulcer prophylaxis. Mobilise patient w/PRN assistance Physical therapy assessment for gait Continue antihypertensive medications. Continue diabetic medications with insulin sliding scale. Follow-up CT scan head 07/03/17 (Prabhakar Gutiérrez) Attending Statement I have personally seen and examined the patient on 07/03/2017. Pertinent documentation and study results have been reviewed by the undersigned. I have personally developed the treatment plan and performed medical decision making. Agree with findings, exam, and treatment plan as noted above. Patient awake, mild lethargy. Mild slowing of speech and thought processes Somewhat impaired judgment and insight. Mild difficulty with recent remote memory. Follow simple commands well No significant dysarthria Extraocular movements intact Sensorimotor function intact all extremities 07/03/2017 CT scan head without evidence of significant residual hemorrhage, subarachnoid hemorrhage, edema. No mass effect. Previous craniotomy Discussed with patient on 07/03/2017 Continue therapy Stable for discharge from neurosurgical standpoint (Yasmani Chung MD) Prabhakar Gutiérrez Jul 03, 2017 09:18 Yasmani Chung MD Jul 05, 2017 22:05
[2017-07-03] MEDS ORDERED: REQU3TAB PO (09:22)
--- NOTE | 2017-07-03 11:43 | EKG ---
Date Performed: 07/02/2017 Time Performed: 11:03:08 PTAGE: 57 years EKG: Sinus rhythm WITH FIRST DEGREE AV BLOCK POSSIBLE ANTERIOR MYOCARDIAL INFARCTION ABNORMAL ECG NO PREVIOUS TRACING DOCTOR: Theo Carrillo Interpretating Date/Time 07/03/2017 11:42:35
[2017-07-03] MEDS ORDERED: PILL SPLITTER OTHER PRN (12:00)
--- NOTE | 2017-07-03 12:42 | RADRPT ---
EXAM DATE/TIME: 07/03/2017 10:39 [facility] COMPARISON: CT BRAIN W/O CONTRAST, July 02, 2017, 11:20. INDICATIONS : Post traumatic subarachnoid hematoma RADIATION DOSE: 47.97 CTDIvol (mGy) MEDICAL HISTORY : Cardiovascular disease. Diabetes mellitus type 2. SURGICAL HISTORY : Craniotomy ENCOUNTER: Subsequent ACUITY: 3 days PAIN SCALE: 5/10 LOCATION: cranial TECHNIQUE: Multiple contiguous axial images were obtained of the head. Using automated exposure control and adj ustment of the mA and/or kV according to patient size, radiation dose was kept as low as reasonably a chievable to obtain optimal diagnostic quality images. DICOM format image data is available electro nically for review and comparison. FINDINGS: CEREBRUM: The ventricles are normal for age. No evidence of midline shift, mass lesion, hemorrhage or acute in farction. No extra-axial fluid collections are seen. POSTERIOR FOSSA: The cerebellum and brainstem are intact. The 4th ventricle is midline. The cerebellopontine angle i s unremarkable. EXTRACRANIAL: The visualized portion of the orbits is intact. SKULL: The calvaria is intact. No evidence of skull fracture. CONCLUSION: Negative for an acute process. Previous surgery on the left for subdural with resolu tion of the previously described hemorrhage. Adrian Mcpherson MD FACR on July 03, 2017 at 12:39 Board Certified Radiologist. This report was verified electronically.
--- NOTE | 2017-07-03 15:09 | PD.TRANSFR ---
Transfer Summary Admission Date Jul 02, 2017 at 13:35 Transfer Date: Jul 03, 2017 Admitting Diagnosis Traumatic SAH Fall Scalp laceration DM HTN Obesity Diagnoses: (1) Fall Diagnosis: Principal (2) HTN (hypertension) Diagnosis: Secondary (3) DM (diabetes mellitus) (4) Gait instability Diagnosis: Secondary (5) Scalp laceration Diagnosis: Principal (6) Traumatic subarachnoid hemorrhage Diagnosis: Principal (7) Morbid obesity Diagnosis: Secondary Significant Findings Last [address] 07/03/17 0400 Signed Impressions: Service Date/Time: Monday, July 03, 2017 10:39 - CONCLUSION: Negative for an acute process. Previous surgery on the left for subdural with resolution of the previously described hemorrhage. Adrian Mcpherson MD FACR Head CT 07/02/17 1040 Signed Impressions: Service Date/Time: Sunday, July 02, 2017 11:20 - CONCLUSION: 1. Trace acute subarachnoid blood products layering along the sulci in the left parietal high convexity. 2. Approximate 5 cm right posterior scalp hematoma with laceration. No fracture is identified. Vishal Prasad MD Chest X-Ray 07/02/17 1040 Signed Impressions: Service Date/Time: Sunday, July 02, 2017 10:49 - CONCLUSION: Rotated and underinflated examination without an acute finding identified. Vishal Prasad MD Cervical Spine CT 07/02/17 1040 Signed Impressions: Service Date/Time: Sunday, July 02, 2017 11:21 - CONCLUSION: 1. No acute findings. Mild degenerative change. Narinder Martinez MD Transfer Summary/Subjective 57 yo female with PMH of DM, HTN, obesity states she was in the shower today when "her legs gave out on her" and she fell and hit her head. She denies loss of consciousness. She denies headache, chest pain, shortness of breath, abdominal pain, flank pain, vomiting. No noted seizure activity, no loss of bowel or bladder continence. Ct brain demonstrates trace amount of subarachnoid hemorrhage in the high L parietal convexity and right posterior scalp hematoma. Patient denies anticoagulant use. All other review of systems negative. Subjective: 07/03 Pt complained of R arm and leg numbness to me that she states occurred earlier today. She did not notice weakness or change in speech. She is L hand dominant. She later denied this symptom but it appeared she may have changed the story because she wants to be discharged home. Physical therapy also documented this complaint in their note. Was out of bed to chair today but requires minimum one person assist. PT recommending acute inpatient rehabilitation versus home health rehabilitation. Patient is adamant she wants to be discharged home but I discussed with concerns regarding safe disposition given her difficulty with ambulation. She is adamant that I call her daughter to come pick her up. Her daughter states that she was just recently moved out of an [facility] on 06/27 and was getting home health PT there. She moved to her daughter and son-in-law's house on 06/27 and PT has not been set up there. Her daughter agrees with acute rehab placement because she says her mother has fallen twice and that she is unstable. She says she is unable to take her home right now; needs to get shower chair and other items. Pt does have a cane and walker at home. Daughter states she will speak with her mother about going to rehab. Discussed with Tisha with case management and she states patient has Medicare and should be able to get acute rehab placement. Objective Vital Signs Date Time Temp Pulse Resp B/P Pulse Ox O2 Delivery O2 Flow Rate FiO2 07/03/17 12:22 20 07/03/17 12:00 98.4 84 131/64 95 07/03/17 07:38 Nasal Cannula 2.00 07/03/17 07:00 21 Intake and Output 07/02/17 07/02/17 07/02/17 07:59 15:59 23:59 Intake Total 240 ml Output Total 1400 ml Balance -1160 ml Result Diagram: 07/03/17 0433 07/03/17 0433 Objective Remarks GENERAL: Well-nourished, well-developed patient who is sitting up in bed. SKIN: Warm and dry. HEAD: Atraumatic. Normocephalic. EYES: Pupils equal and round, 2 mm reactive bilaterally. No scleral icterus. No injection or drainage. ENT: No nasal bleeding or discharge. Mucous membranes pink and moist. NECK: Trachea midline. No JVD. CARDIOVASCULAR: Heart sounds are distant but there is regular rate and rhythm with no murmurs rubs or gallops appreciated. RESPIRATORY: Clear to auscultation bilaterally. GASTROINTESTINAL: Abdomen obese, soft, non-tender, nondistended. Bowel sounds present. MUSCULOSKELETAL: Extremities without clubbing, cyanosis. NEUROLOGICAL: Awake and alert. No obvious cranial nerve deficits. Extraocular movements intact. Oral tongue protrusion. No facial droop. 4+/5 biceps/ triceps bilaterally. 5/5 plantar flexion bilaterally. She reports intact sensation to soft touch/temperature BUE and BLE. Speech is baseline. Oriented to person, year, circumstance Procedures scalp laceration repair with wenceslao per Mauri Byers in ED. Urinary Catheter: Yes Assessment to: Remove Date of Insertion: Jul 02, 2017 Date of Removal: Jul 03, 2017 Vascular Central Line Catheter: No A/P Problem List: (1) Morbid obesity ICD Code: E66.01 Status: Chronic (2) Fall ICD Code: W19.XXXA Status: Acute (3) HTN (hypertension) ICD Code: I10 Status: Acute (4) DM (diabetes mellitus) ICD Code: E11.9 Status: Acute (5) Gait instability ICD Code: R26.81 Status: Chronic (6) Scalp laceration ICD Code: S01.01XA Status: Acute (7) Traumatic subarachnoid hemorrhage ICD Code: S06.6X9A Status: Acute Assessment and Plan NEURO: Fall Scalp hematoma Scalp laceration and hematoma Left parietal traumatic subarachnoid hemorrhage, traumatic h/o craniotomy for L subdural CT C-spine negative for acute fracture. Mild degenerative changes CT brain 07/02/17trace subarachnoid hemorrhage left parietal convex [place]. right posterior hematoma Laceration repaired in ED 07/02 with wenceslao. Will need staple removal 07/08. Neurosurgery following, Dr. Chung Repeat CT brain 07/03 with resolution of traumatic subarachnoid hemorrhage. Sodium normal. She denies sx of orthostasis. ?TIA - she reports transient numbness of right upper and right lower extremity. These symptoms did not occur with her original fall, they occurred at some point earlier this morning. She is a somewhat difficult historian and story seems to change. In view of possible TIA symptoms as well as recent gait disturbance will obtain MRI. Also obtain carotid u/s, echo, lipids. RESP: On room air CV: Hypertension Labetalol as needed for systolic blood pressure greater than 160. Continue tamulosin 0.4 mg by mouth daily at bedtime Increase metoprolol 12.5 mg by mouth bid Continue hydralazine 50 mg by mouth twice a day GI: Morbid obesity past h/o Gastritis Change protonix to po. Bedside swallow assessed. Heart healthy diet 1800 ADA FEN/RENAL: Mild renal insufficiency, baseline renal function unknown. Mike inserted in ED. Monitor intake and output. D/c Mike ordered for this morning, discussed with RN. CPK mildly elevated at 574, repeat 857. Likely secondary to fall. KVO IVF ID: Monitor for signs and symptoms of infection. HEME: Chronic anemia Thrombocytopenia, likely chronic Obtain coags Patient was not on chronic anti-coagulation ENDO: Type 2 Diabetes mellitus Increase Detemir to home dose of 60 units subcutaneous daily at bedtime Medium -dose insulin sliding ac/hs. PROPH: SCDs for DVT prophylaxis. No pharmacologic DVT prophylaxis currently due to acute subarachnoid hemorrhage. ACCESS: Peripheral IV providing adequate access at this time. Out of bed with assistance. PT with ongoing evaluation and treatment. Transfer patient to floor. Hospitalist to assume care 07/04. Discussed with neurosurgery. Discussed with bedside nurse and case management. Patient and her daughter updated in detail. I recommend acute rehab if patient will agree to it. Daughter assisting in convincing her. Full code Level II Elizabeth Blackwell MD Jul 03, 2017 15:09
[2017-07-03] MEDS ORDERED: BUMETANIDE INJ 1 MG/4 ML VIAL IV PUSH ONE (16:30)
--- NOTE | 2017-07-03 21:42 | RADRPT ---
EXAM DATE/TIME: 07/03/2017 20:15 [facility] COMPARISON: No previous studies available for comparison. INDICATIONS : Transient ischemic attack. MEDICAL HISTORY : Arthritis. Gastritis. CVA. Diabetes. Paresthesia. SURGICAL HISTORY : Cholecystectomy. Lumbar surgery. ENCOUNTER: Initial ACUITY: 1 day PAIN SCORE: 0/10 LOCATION: Bilateral neck PEAK SYSTOLIC VELOCITIES (cm/sec): ICA/CCA RATIO: Right: 1.1 Left: 0.6 ICA: Right: 106 Left: 60 CCA: Right: 105 Left: 107 ECA: Right: 178 Left: 179 VERTEBRAL: Right: 153 retrograde Left: 75 antegrade Elevated flow velocities and ICA/CCA ratios have been found to correlate with increased degrees of vessel stenosis, calculated as percentage of diameter relative to a normal segment of distal ICA/CCA FINDINGS: RIGHT CAROTID: No significant stenosis is visualized. The waveforms are not well delineated. LEFT CAROTID: Calcified plaque in the bulb and proximal internal carotid artery. The waveforms are not well deline ated. VERTEBRAL ARTERIES: Antegrade flow is seen in both vertebral arteries. CONCLUSION: Limited examination with inability to obtain quality waveforms. The no significant widening of the c arotid waveforms that are obtained. Velocity profile is within normal limits, characteristic of less than 50% stenosis. Danilo Miner MD on July 03, 2017 at 21:37 Board Certified Radiologist. This report was verified electronically.
[2017-07-03] MEDS: TAMSULOSIN HCL 0.4 MG CAP PO SCH (21:47)
[2017-07-03] MEDS: METOPROLOL TARTRATE 25 MG TAB PO SCH (21:48)
[2017-07-03] MEDS: INSULIN DETEMIR 100 UNITS/ML VIAL SQ SCH (21:51)
[2017-07-04] VITALS (10 sets, daily range): BP systolic 148–165; BP diastolic 63–70; PULSE 70–79; RESP 12–24; TEMP 98.3–98.8; O2SAT 91–100
[2017-07-04] MEDS: MORPHINE SULFATE 4 MG/ML INJ IV PRN ×4 (01:26→16:36)
[2017-07-04] MEDS: CHLORHEXIDINE GLUCONATE 2 % 1 PACK (2 CLOTHS) TOP SCH (04:00)
[2017-07-04] MEDS: INSULIN ASPART SUPPLEMENTAL SCALE SQ SCH ×4 (06:46→21:16)
[2017-07-04] MEDS: PANTOPRAZOLE SOD 40 MG DELAYED RELEASE TAB PO SCH (08:15)
[2017-07-04] MEDS: METOPROLOL TARTRATE 25 MG TAB PO SCH ×2 (08:15→21:10)
[2017-07-04] MEDS: DOCUSATE SODIUM 50 MG/SENNA 8.6 MG TAB PO SCH ×2 (08:15→21:10)
[2017-07-04] MEDS: hydrALAZINE HCL 50 MG TAB PO SCH ×2 (08:16→21:10)
[2017-07-04] MEDS ORDERED: LISINOPRIL 10 MG TAB PO SCH (09:00)
--- NOTE | 2017-07-04 10:16 | HHI.NSPN ---
(Prabhakar Gutiérrez) History Chief Complaint: Pain to the back of the head (Prabhakar Gutiérrez) Interval History 07/02: 57-year-old female states that she fell backwards out of her shower today because her legs gave out on her. She does not believe that she lost consciousness. She had no headache, chest pain, shortness of breath, dizziness , vertigo immediately prior to the incident. No seizure activity reported. She complains of posterior scalp pain. She has a history of diabetic neuropathy with chronic lower extremity numbness and paresthesias, but no acute upper or lower extremity sensorimotor symptoms since her injury. She does have complained of moderate neck pain. She has chronic back pain. No complaint of blurred vision and diplopia speech difficulty confusion and memory loss. 07/03: The patient is awake and alert sitting up in a chair when seen this morning. She states that she is doing good but does have a headache. She did say as she was examined that she was in a bit of a fog. 07/04: The patient is awake in bed. She states she has pain to the back of the head where she struck it but denies any headache. She also reports that she had some numbness to the the fingertips which has resolved to the left hand and states the right is chronic without any change. (Prabhakar Gutiérrez) System Review Comments Constitutional: Patient denies any fever or chills. Integumentary: Patient states she has a laceration to the back of the head. HEENT: Patient complains of pain where she hit the back of her head. She denies any visual or hearing problems. Respiratory: Patient denies any shortness of breath or productive cough. Cardiovascular: Patient denies any chest pain, palpitations or irregular heartbeat. Gastrointestinal: Patient denies any abdominal pain, nausea, vomiting or incontinence of stool. Genitourinary: Patient denies any incontinence of urine. Musculoskeletal: Patient complains of upper neck and chronic lower back pain. She also states she has chronic pain to the left arm. She denies any other extremity pain. Neurologic: Patient states she did have some numbness to all of her fingertips which has resolved on the left but the right is chronic and without change. She denies any headche, dizziness, tingling or other numbness. (Prabhakar Gutiérrez ) Exam Results Vital Signs Date Time Temp Pulse Resp B/P Pulse Ox O2 Delivery O2 Flow Rate FiO2 07/04/17 08:05 96 Nasal Cannula 2.00 07/04/17 04:00 98.7 74 12 150/63 07/03/17 07:00 21 Intake and Output 07/03/17 07/03/17 07/04/17 08:00 16:00 00:00 Intake Total 860 ml 240 ml Output Total 1300 ml 1000 ml Balance -440 ml -760 ml (Prabhakar Gutiérrez) Physical Examination GENERAL: Pleasant obese lady laying in bed, no apparent distress, affect normal. SKIN: Abrasions noted to right side extremities healing w/o complication, peripheral vascular skin changes to bilateral lower legs with scaling lesions. HEENT: Right occipital scalp laceration slightly edematous and approximated w/ wenceslao moderately TTP. PERRLA, EOMI. NECK: No JVD, trachea midline. CARDIOVASCULAR: S1S2 w/RRR w/o M/G/R, radial pulses 2+ bilaterally, unable to palpate pedal or posterior tibial pulses, cap refill < 2 sec, pitting edema bilateral lower extremities, bilateral peripheral vascular skin changes. Monitor is sinus rhythm w/o any ectopy noted. RESPIRATORY: CTAB w/o W/R/R, equal excursion, nonlaboured, on RA. GASTROINTESTINAL: Abdomen morbidly obese, nontender, bowel sounds not appreciated. MUSCULOSKELETAL: GRIMM w/o difficulty, left arm TTP chronically, RUE NTTP. NEUROLOGICAL: AAOx3. Speech clear & appropriate although slow in responding. Follows simple commands w/o difficulty. Sensation to light touch intact to all extremities except decreased to distal fingertips of right hand distal lower legs. Motor strength 5/5 to all major flexion and extension muscle group. (Prabhakar Gutiérrez) Medical Decision Making Impression and Plan Impression: 1. Traumatic brain injury 2. Right occipital scalp laceration CT brain negative for any acute process. PT recommends using wheeled walker at discharge and inpatient rehab vs home health for further therapy. Patient continues to do well and is neurologically intact. Plan: Discussed plan of care w/patient. Primary management per Soap Maker/Hospitalist. Frequent neuro checks. Stat CT brain for any worsening neuro status. Non-chemical DVT prophylaxis. Ulcer prophylaxis. Mobilise patient w/PRN assistance. Physical therapy. Continue antihypertensive medications. Continue diabetic medications with insulin sliding scale. The patient is cleared for discharge from a NSGY perspective. Will therefore sign off at this time. If we may be of further assistance please consult the service as needed. Thank you for allowing us to participate in your patient's care. (Prabhakar Gutiérrez) Attending Statement I have personally seen and examined the patient on 07/04/2017. Pertinent documentation and study results have been reviewed by the undersigned. I have personally developed the treatment plan and performed medical decision making. Agree with findings, exam, and treatment plan as noted above. Patient remains awake, mild lethargy, bile slowing of speech and thought processes Cooperative No significant anxiety or agitation CT scan results reviewed with patient MRI ordered per intensivists She is stable from a neurosurgical standpoint. Follow-up CT scan 07/03/2017 without residual hemorrhage, edema, mass effect, hydrocephalus. She is stable for discharge for inpatient rehabilitation. No further neurosurgical intervention anticipated at this point. We will sign off. No outpatient neurosurgery follow-up necessary unless further problems arise. (Yasmani Chung MD) Prabhakar Gutiérrez Jul 04, 2017 10:16 Yasmani Chung MD Jul 05, 2017 22:08
--- NOTE | 2017-07-04 12:49 | ECHRPT ---
Indication: CVA/TIA CONCLUSIONS The left ventricular systolic function is low normal with an estimated ejection fraction in the rang e of 50- 55%. Moderate concentric left ventricular hypertrophy. Normal left ventricular size. Moderate mitral annular calcification. There is mild to moderate tricuspid valve regurgitation. The estimated pulmonary arterial pressure is 37 mmHg. BP: 150 / 63 HR: 74 Rhythm: Sinus MEASUREMENTS (Male / Female) Normal Values Technical Quality:Good 2D ECHO LV Diastolic Diameter PLAX 4.1 cm 4.2 - 5.9 / 3.9 - 5.3 cm LV Systolic Diameter PLAX 3.2 cm IVS Diastolic Thickness 1.3 cm 0.6 - 1.0 / 0.6 - 0.9 cm LVPW Diastolic Thickness 1.4 cm 0.6 - 1.0 / 0.6 - 0.9 cm LV Relative Wall Thickness 0.7 LVOT Diameter 2.0 cm M-MODE Aortic Root Diameter MM 2.7 cm LA Systolic Diameter MM 4.9 cm LA Ao Ratio MM 1.8 AV Cusp Separation MM 2.0 cm DOPPLER AV Peak Velocity 178.0 cm/s AV Peak Gradient 12.7 mmHg LVOT Peak Velocity 140.0 cm/s LVOT Peak Gradient 7.8 mmHg AV Area Cont Eq pk 2.5 cm MV Peak Velocity 147.0 cm/s MV Peak Gradient 8.6 mmHg MV Mean Velocity 107.0 cm/s MV Mean Gradient 5.0 mmHg MV Area PHT 2.2 cm Mitral E Point Velocity 181.0 cm/s Mitral A Point Velocity 157.0 cm/s Mitral E to A Ratio 1.2 LV E' Lateral Velocity 8.3 cm/s Mitral E to LV E' Lateral Ratio 21.8 TR Peak Velocity 262.0 cm/s TR Peak Gradient 27.5 mmHg PV Peak Velocity 124.0 cm/s PV Peak Gradient 6.2 mmHg FINDINGS LEFT VENTRICLE The left ventricular systolic function is low normal with an estimated ejection fraction in the rang e of 50- 55%. Moderate concentric left ventricular hypertrophy. Normal left ventricular size. RIGHT VENTRICLE Normal right ventricular size and systolic function. LEFT ATRIUM The left atrial size is normal. RIGHT ATRIUM The right atrial size is normal. ATRIAL SEPTUM Normal atrial septal thickness without atrial level shunting by limited color doppler interrogation. AORTA The aortic root and proximal ascending aorta are normal in size on limited imaging. MITRAL VALVE Moderate mitral annular calcification. AORTIC VALVE Trileaflet aortic valve. No aortic valve stenosis or regurgitation. TRICUSPID VALVE Structurally normal tricuspid valve. There is mild to moderate tricuspid valve regurgitation. The estimated pulmonary arterial pressure is 37 mmHg. PULMONARY VALVE The pulmonary valve is not well visualized. VESSELS The inferior vena cava is normal in size. PERICARDIUM No pericardial effusion. Theo Carrillo MD, FACC (Electronically Signed) Final Date:04 July 2017 12:49
--- NOTE | 2017-07-04 13:06 | HHI.PR ---
Subjective Remarks Complaints of headache today. No neurological symptoms reported. She requests resumption of her Requip and Lyrica. She says she's also been on aspirin and Plavix but these are not options to restart right now. Blood pressures remain elevated any better control prior to discharge. Objective Vital Signs Date Time Temp Pulse Resp B/P Pulse Ox O2 Delivery O2 Flow Rate FiO2 07/04/17 08:49 22 07/04/17 08:05 96 Nasal Cannula 2.00 07/04/17 08:00 98.7 76 23 165/70 98 07/04/17 07:00 98 Nasal Cannula 2.00 07/04/17 07:00 70 07/04/17 04:00 98.7 74 12 150/63 100 07/04/17 00:00 98.7 74 15 155/64 100 07/03/17 23:00 88 07/03/17 20:00 98.4 88 15 143/63 98 07/03/17 19:00 95 Nasal Cannula 5.00 07/03/17 16:00 97.9 89 19 154/68 96 07/03/17 15:00 81 I/O 07/03/17 07/03/17 07/03/17 07/04/17 07/04/17 07/04/17 07:00 15:00 23:00 07:00 15:00 23:00 Intake Total 860 ml 240 ml 0 ml Output Total 1300 ml 1000 ml Balance -440 ml -760 ml 0 ml Intake Oral 420 ml 240 ml 0 ml IV Total 440 ml 0 ml 0 ml Output Urine Total 1300 ml 1000 ml # Voids 8 # Bowel Movements 0 0 1 Result Diagram: 07/03/17 0433 07/03/17 0433 Objective Remarks GENERAL: NAD, A&Ox3, obese HEAD: Normocephalic. NECK: Supple, trachea midline. No lymphadenopathy. EYES: No scleral icterus. No injection or drainage. CARDIOVASCULAR: Regular rate and rhythm without murmurs, gallops, or rubs. RESPIRATORY: Breath sounds equal bilaterally. No accessory muscle use. GASTROINTESTINAL: Abdomen soft, non-tender, nondistended. MUSCULOSKELETAL: No cyanosis, or edema. SKIN: Warm and dry. NEURO: No focal neurological deficitis. A/P Problem List: (1) Gait instability ICD Code: R26.81 (2) Morbid obesity ICD Code: E66.01 (3) Traumatic subarachnoid hemorrhage ICD Code: S06.6X9A (4) Scalp laceration ICD Code: S01.01XA (5) DM (diabetes mellitus) ICD Code: E11.9 (6) HTN (hypertension) ICD Code: I10 (7) Fall ICD Code: W19.XXXA Assessment and Plan Assessment and plan 57-year-old female admitted secondary to subarachnoid hemorrhage after fall with head trauma. Stabilized. Stable today for transfer out of ICU. Continue to monitor and work on improved blood pressure control. Fall with head trauma Scalp hematoma Scalp laceration and hematoma Left parietal traumatic subarachnoid hemorrhage, traumatic h/o craniotomy for L subdural No fractures Head laceration repaired on 07/02/17 Staple removal planned for 07/08/17 CT scan from 07/03/17 shows stability of subarachnoid hemorrhage without evidence of further bleeding Follow sodium levels No further neurologic symptoms are reported by patient Continue physical therapy Hypertension Continue labetalol When necessary clonidine started Continue hydralazine Continue tamsulosin Morbid obesity past h/o Gastritis Diabetes mellitus type 2 Heart healthy diet 1800 ADA Insulin sliding scale Follow blood sugars Suspected chronic kidney disease Follow renal function Chronic anemia Thrombocytopenia likely chronic Follow CBC DVT prophylaxis SCDs No blood thinners due to subarachnoid hemorrhage Stephon Yang MD Jul 04, 2017 13:06
[2017-07-04] MEDS: PREGABALIN 25 MG CAP PO SCH ×2 (15:24→21:10)
[2017-07-04] MEDS: TAMSULOSIN HCL 0.4 MG CAP PO SCH (21:10)
[2017-07-04] MEDS: INSULIN DETEMIR 100 UNITS/ML VIAL SQ SCH (21:15)
[2017-07-05] VITALS (7 sets, daily range): BP systolic 143–188; BP diastolic 65–77; PULSE 70–85; RESP 16–19; TEMP 97.7–98.9; O2SAT 94–100
[2017-07-05] MEDS: CHLORHEXIDINE GLUCONATE 2 % 1 PACK (2 CLOTHS) TOP SCH (03:38)
[2017-07-05] MEDS: PREGABALIN 25 MG CAP PO SCH ×3 (06:56→22:57)
[2017-07-05] MEDS: INSULIN ASPART SUPPLEMENTAL SCALE SQ SCH ×4 (06:58→22:53)
[2017-07-05] MEDS ORDERED: LORazepam 2 MG/ML VIAL IV PUSH PRN (09:00)
[2017-07-05] MEDS ORDERED: LISINOPRIL 20 MG TAB PO SCH (09:00)
[2017-07-05] MEDS: cloNIDine HCL 0.1 MG TAB PO PRN ×2 (09:30→23:03)
[2017-07-05] MEDS: METOPROLOL TARTRATE 25 MG TAB PO SCH ×2 (09:30→23:03)
[2017-07-05] MEDS: hydrALAZINE HCL 50 MG TAB PO SCH ×2 (09:31→23:04)
[2017-07-05] MEDS: PANTOPRAZOLE SOD 40 MG DELAYED RELEASE TAB PO SCH (09:31)
[2017-07-05] MEDS: DOCUSATE SODIUM 50 MG/SENNA 8.6 MG TAB PO SCH ×2 (09:32→23:04)
--- NOTE | 2017-07-05 11:02 | RADRPT ---
EXAM DATE/TIME: 07/05/2017 10:07 [facility] COMPARISON: CT BRAIN W/O CONTRAST, July 03, 2017, 10:39. INDICATIONS : Bleed. Fall. MEDICAL HISTORY : Diabetes mellitus type 2. Hypertension. SDH SURGICAL HISTORY : Fusion, lumbar. Cholecystectomy. SDH. ENCOUNTER: Initial ACUITY: 2 day PAIN SCORE: 0/10 LOCATION: head TECHNIQUE: Multiplanar, multisequence MRI of the brain was performed without contrast. FINDINGS: Examination is limited by patient motion. CEREBRUM: Mild diffuse cerebral atrophy. The ventricles are normal for degree of atrophy. No evidence of midli ne shift, mass lesion, hemorrhage or acute infarction. No extraaxial fluid collections are seen. Th e pituitary gland and suprasellar cistern are normal in configuration. WHITE MATTER: Scattered increased flair signal in the periventricular and deep white matter consistent with ischemi c white matter demyelination. POSTERIOR FOSSA: The cerebellum and brainstem are intact. The 4th ventricle is midline. The cerebellopontine angle is unremarkable. The cerebellar tonsils are normal in position. DIFFUSION IMAGING: No focal areas of restricted diffusion are seen. No evidence of acute infarction. EXTRACRANIAL: Previous left posterior parietal craniotomy. The visualized portions of the orbits and paranasal sinu ses are unremarkable. CONCLUSION: 1. Senescent changes. 2. No acute abnormality. Specifically, no evidence for intra-or extra-axial hemorrhage as questioned. Forrest Sullivan MD on July 05, 2017 at 10:53 Board Certified Radiologist. This report was verified electronically.
[2017-07-05 12:11] LABS: HEMATOCRIT 34.9 % (35.0-46.0); MEAN CELL VOLUME 78.3 FL (80.0-100.0); PLATELET COUNT 152 TH/MM3 (150-450); RED BLOOD COUNT 4.45 MIL/MM3 (4.00-5.30); RED CELL DISTRIBUTION WIDTH 18.6 % (11.6-17.2); REVIEW FLAG FINAL; WHITE BLOOD COUNT 6.3 TH/MM3 (4.0-11.0)
[2017-07-05 12:39] LABS: BICARBONATE 34.8 MEQ/L (21.0-32.0); POTASSIUM 3.9 MEQ/L (3.5-5.1)
--- NOTE | 2017-07-05 15:36 | HHI.PR ---
Subjective Remarks Headache now resolved. Patient has no new complaints. She had an MRI of the brain today which shows stability. Blood pressures remain elevated and she is not yet stable for discharge to retirement facility. Objective Vital Signs Date Time Temp Pulse Resp B/P Pulse Ox O2 Delivery O2 Flow Rate FiO2 07/05/17 12:40 94 Nasal Cannula 2.00 07/05/17 12:00 98.9 70 17 166/71 94 07/05/17 08:00 97.8 75 17 182/77 96 07/05/17 04:30 97.7 70 19 173/72 98 07/05/17 00:13 Room Air 07/05/17 00:00 97.8 70 18 143/65 100 07/04/17 21:54 98 Nasal Cannula 2.00 07/04/17 20:00 98.4 79 20 153/70 91 07/04/17 16:00 98.3 75 18 148/65 92 I/O 07/04/17 07/04/17 07/04/17 07/05/17 07/05/17 07/05/17 07:00 15:00 23:00 07:00 15:00 23:00 Intake Total 0 ml 330 ml Output Total 500 ml Balance 0 ml -170 ml Intake Oral 0 ml 320 ml IV Total 0 ml 10 ml Output Urine Total 500 ml # Voids 8 # Bowel Movements 1 0 Result Diagram: 07/05/17 1155 07/05/17 1155 Objective Remarks GENERAL: NAD, A&Ox3, obese HEAD: Normocephalic. NECK: Supple, trachea midline. No lymphadenopathy. EYES: No scleral icterus. No injection or drainage. CARDIOVASCULAR: Regular rate and rhythm without murmurs, gallops, or rubs. RESPIRATORY: Breath sounds equal bilaterally. No accessory muscle use. GASTROINTESTINAL: Abdomen soft, non-tender, nondistended. MUSCULOSKELETAL: No cyanosis, or edema. SKIN: Warm and dry. NEURO: No focal neurological deficitis. A/P Problem List: (1) Gait instability ICD Code: R26.81 (2) Morbid obesity ICD Code: E66.01 (3) Traumatic subarachnoid hemorrhage ICD Code: S06.6X9A (4) Scalp laceration ICD Code: S01.01XA (5) DM (diabetes mellitus) ICD Code: E11.9 (6) HTN (hypertension) ICD Code: I10 (7) Fall ICD Code: W19.XXXA Assessment and Plan Assessment and plan 57-year-old female admitted secondary to subarachnoid hemorrhage after fall with head trauma. Stabilized. MRI of the brain obtained today and shows stability. Blood pressure is not yet controlled. Continue to monitor and work on improved blood pressure control. She will need stable blood pressures prior to discharge to retirement facility. Fall with head trauma Scalp hematoma Scalp laceration and hematoma Left parietal traumatic subarachnoid hemorrhage, traumatic h/o craniotomy for L subdural No fractures Head laceration repaired on 07/02/17 Staple removal planned for 07/08/17 CT scan from 07/03/17 shows stability of subarachnoid hemorrhage without evidence of further bleeding Follow sodium levels No further neurologic symptoms are reported by patient Continue physical therapy Hypertension Continue labetalol When necessary clonidine started Continue hydralazine Continue tamsulosin Morbid obesity past h/o Gastritis Diabetes mellitus type 2 Heart healthy diet 1800 ADA Insulin sliding scale Follow blood sugars Suspected chronic kidney disease Follow renal function Chronic anemia Thrombocytopenia likely chronic Follow CBC DVT prophylaxis SCDs No blood thinners due to subarachnoid hemorrhage Stephon Yang MD Jul 05, 2017 15:36
[2017-07-05] MEDS: INSULIN DETEMIR 100 UNITS/ML VIAL SQ SCH (22:55)
[2017-07-05] MEDS: TAMSULOSIN HCL 0.4 MG CAP PO SCH (23:02)
[2017-07-06] VITALS (7 sets, daily range): BP systolic 133–194; BP diastolic 60–74; PULSE 62–74; RESP 16–18; TEMP 96.7–98.6; O2SAT 91–100
[2017-07-06] MEDS: PREGABALIN 25 MG CAP PO SCH ×4 (03:15→22:32)
[2017-07-06] MEDS: CHLORHEXIDINE GLUCONATE 2 % 1 PACK (2 CLOTHS) TOP SCH (03:15)
[2017-07-06] MEDS: INSULIN ASPART SUPPLEMENTAL SCALE SQ SCH ×4 (06:43→22:27)
[2017-07-06] MEDS ORDERED: INSULIN HUMAN NPH 1,000 UNITS/10 ML VIAL SQ ONE (08:00)
[2017-07-06] MEDS: PANTOPRAZOLE SOD 40 MG DELAYED RELEASE TAB PO SCH (09:23)
[2017-07-06] MEDS: LISINOPRIL 20 MG TAB PO SCH (09:24)
[2017-07-06] MEDS: DOCUSATE SODIUM 50 MG/SENNA 8.6 MG TAB PO SCH ×2 (09:25→21:00)
[2017-07-06] MEDS: hydrALAZINE HCL 50 MG TAB PO SCH ×2 (09:25→22:30)
[2017-07-06] MEDS: METOPROLOL TARTRATE 25 MG TAB PO SCH ×2 (09:25→22:32)
--- NOTE | 2017-07-06 13:38 | HHI.PR ---
Subjective Remarks Poor blood pressure control overnight. Further adjustments in blood pressure treatments are discussed with patient. Given SAH, Blood pressure control necessary prior to discharge. Objective Vital Signs Date Time Temp Pulse Resp B/P Pulse Ox O2 Delivery O2 Flow Rate FiO2 07/06/17 12:00 98.6 62 18 133/60 92 07/06/17 08:40 98.1 65 18 158/65 96 07/06/17 04:00 97.8 72 16 194/73 93 07/06/17 00:30 Nasal Cannula 2.00 07/06/17 00:00 98.6 74 16 182/74 94 07/05/17 20:00 98.4 76 16 188/76 100 07/05/17 17:08 95 Nasal Cannula 2.00 I/O 07/05/17 07/05/17 07/05/17 07/06/17 07/06/17 07/06/17 06:59 14:59 22:59 06:59 14:59 22:59 Intake Total 360 ml Balance 360 ml Intake Oral 360 ml # Voids 4 Result Diagram: 07/05/17 1155 07/05/17 1155 Objective Remarks GENERAL: NAD, A&Ox3, obese HEAD: Normocephalic. NECK: Supple, trachea midline. No lymphadenopathy. EYES: No scleral icterus. No injection or drainage. CARDIOVASCULAR: Regular rate and rhythm without murmurs, gallops, or rubs. RESPIRATORY: Breath sounds equal bilaterally. No accessory muscle use. GASTROINTESTINAL: Abdomen soft, non-tender, nondistended. MUSCULOSKELETAL: No cyanosis, or edema. SKIN: Warm and dry. NEURO: No focal neurological deficitis. A/P Problem List: (1) Gait instability ICD Code: R26.81 (2) Morbid obesity ICD Code: E66.01 (3) Traumatic subarachnoid hemorrhage ICD Code: S06.6X9A (4) Scalp laceration ICD Code: S01.01XA (5) DM (diabetes mellitus) ICD Code: E11.9 (6) HTN (hypertension) ICD Code: I10 (7) Fall ICD Code: W19.XXXA Assessment and Plan Assessment and plan 57-year-old female admitted secondary to subarachnoid hemorrhage after fall with head trauma. Stabilized. MRI of the brain obtained today and shows stability. Blood pressure is not yet controlled. Continue to monitor and work on improved blood pressure control. Lisinopril metoprolol increased. Continue to follow blood pressures. She will need stable blood pressures prior to discharge to half-way facility. Fall with head trauma Scalp hematoma Scalp laceration and hematoma Left parietal traumatic subarachnoid hemorrhage, traumatic h/o craniotomy for L subdural No fractures Head laceration repaired on 07/02/17 Staple removal planned for 07/08/17 CT scan from 07/03/17 shows stability of subarachnoid hemorrhage without evidence of further bleeding Follow sodium levels No further neurologic symptoms are reported by patient Continue physical therapy Hypertension Continue labetalol When necessary clonidine started Continue hydralazine Continue tamsulosin Morbid obesity past h/o Gastritis Diabetes mellitus type 2 Heart healthy diet 1800 ADA Insulin sliding scale Follow blood sugars Suspected chronic kidney disease Follow renal function Chronic anemia Thrombocytopenia likely chronic Follow CBC DVT prophylaxis SCDs No blood thinners due to subarachnoid hemorrhage Stephon Yang MD Jul 06, 2017 13:38
[2017-07-06] MEDS ORDERED: LOPERAMIDE HCL 2 MG CAP PO PRN (18:15)
[2017-07-06] MEDS ORDERED: INSULIN DETEMIR 100 UNITS/ML VIAL SQ SCH (21:00)
[2017-07-06] MEDS: TAMSULOSIN HCL 0.4 MG CAP PO SCH (22:32)
[2017-07-07] VITALS: BP 125/60; PULSE 58; RESP 20; TEMP 98.1; O2SAT 97
[2017-07-07] MEDS: CHLORHEXIDINE GLUCONATE 2 % 1 PACK (2 CLOTHS) TOP SCH (04:00)
[2017-07-07 05:44] VITALS: BP 122/61; PULSE 62; RESP 20; TEMP 97.8; O2SAT 97
[2017-07-07] MEDS: PREGABALIN 25 MG CAP PO SCH (05:52)
[2017-07-07] MEDS: INSULIN ASPART SUPPLEMENTAL SCALE SQ SCH ×2 (06:28→10:55)
[2017-07-07 08:38] VITALS: BP 168/74; PULSE 65; RESP 16; TEMP 98; O2SAT 95
[2017-07-07 08:49] VITALS: O2SAT 98
[2017-07-07] MEDS: hydrALAZINE HCL 50 MG TAB PO SCH (08:51)
[2017-07-07] MEDS: PANTOPRAZOLE SOD 40 MG DELAYED RELEASE TAB PO SCH (08:51)
[2017-07-07] MEDS: DOCUSATE SODIUM 50 MG/SENNA 8.6 MG TAB PO SCH (08:51)
[2017-07-07] MEDS: LISINOPRIL 20 MG TAB PO SCH (08:51)
[2017-07-07] MEDS: METOPROLOL TARTRATE 25 MG TAB PO SCH (08:52)
[2017-07-07] MEDS ORDERED: CLON.1 PO (10:02)
[2017-07-07] MEDS ORDERED: METO25TA3 PO (10:02)
[2017-07-07] MEDS ORDERED: SENN8.6T15 PO (10:02)
[2017-07-07] MEDS ORDERED: LISI-515 PO (10:02)
--- NOTE | 2017-07-07 10:16 | HHI.DS ---
Discharge Summary Admission Date Jul 02, 2017 at 13:35 Discharge Date: Jul 07, 2017 Admitting Diagnosis Traumatic SAH Fall Scalp laceration DM HTN Obesity (1) Fall ICD Code: W19.XXXA Diagnosis: Principal (2) HTN (hypertension) ICD Code: I10 Diagnosis: Secondary (3) DM (diabetes mellitus) ICD Code: E11.9 (4) Gait instability ICD Code: R26.81 Diagnosis: Secondary (5) Scalp laceration ICD Code: S01.01XA Diagnosis: Principal (6) Traumatic subarachnoid hemorrhage ICD Code: S06.6X9A Diagnosis: Principal (7) Morbid obesity ICD Code: E66.01 Diagnosis: Secondary Procedures scalp laceration repair with wenceslao per Mauri Byers in ED. Brief History - From Admission 57 yo female with PMH of DM, HTN, obesity states she was in the shower today when "her legs gave out on her" and she fell and hit her head. She denies loss of consciousness. She denies headache, chest pain, shortness of breath, abdominal pain, flank pain, vomiting. No noted seizure activity, no loss of bowel or bladder continence. Ct brain demonstrates trace amount of subarachnoid hemorrhage in the high L parietal convexity and right posterior scalp hematoma. Patient denies anticoagulant use. All other review of systems negative. CBC/BMP: 07/05/17 1155 07/05/17 1155 Significant Findings Laboratory Tests Test 07/05/17 11:55 Hemoglobin 11.1 GM/DL (11.6-15.3) Hematocrit 34.9 % (35.0-46.0) Mean Corpuscular Volume 78.3 FL (80.0-100.0) Mean Corpuscular Hemoglobin 25.0 PG (27.0-34.0) Red Cell Distribution Width 18.6 % (11.6-17.2) Chloride Level 97 MEQ/L (98-107) Carbon Dioxide Level 34.8 MEQ/L (21.0-32.0) Estimat Glomerular Filtration 69 ML/MIN (>89) Rate Random Glucose 210 MG/DL (74-106) Transfer Summary 57 yo female with PMH of DM, HTN, obesity states she was in the shower today when "her legs gave out on her" and she fell and hit her head. She denies loss of consciousness. She denies headache, chest pain, shortness of breath, abdominal pain, flank pain, vomiting. No noted seizure activity, no loss of bowel or bladder continence. Ct brain demonstrates trace amount of subarachnoid hemorrhage in the high L parietal convexity and right posterior scalp hematoma. Patient denies anticoagulant use. All other review of systems negative. Subjective: 07/03 Pt complained of R arm and leg numbness to me that she states occurred earlier today. She did not notice weakness or change in speech. She is L hand dominant. She later denied this symptom but it appeared she may have changed the story because she wants to be discharged home. Physical therapy also documented this complaint in their note. Was out of bed to chair today but requires minimum one person assist. PT recommending acute inpatient rehabilitation versus home health rehabilitation. Patient is adamant she wants to be discharged home but I discussed with concerns regarding safe disposition given her difficulty with ambulation. She is adamant that I call her daughter to come pick her up. Her daughter states that she was just recently moved out of an [facility] on 06/27 and was getting home health PT there. She moved to her daughter and son-in-law's house on 06/27 and PT has not been set up there. Her daughter agrees with acute rehab placement because she says her mother has fallen twice and that she is unstable. She says she is unable to take her home right now; needs to get shower chair and other items. Pt does have a cane and walker at home. Daughter states she will speak with her mother about going to rehab. Discussed with Tisha with case management and she states patient has Medicare and should be able to get acute rehab placement. Hospital Course Mrs. Hagen is a 57-year-old female. She was admitted secondary to fall with head trauma and subarachnoid hemorrhage. She was monitored in the ICU and demonstrated stability and cessation of the bleed. As been recovering ever since. Physical therapy is ongoing. One of the problems kept her here longer was inability to control her blood pressure. Blood pressure medications have been graduated up and today she has demonstrated blood pressure control safe for discharge. She will need discharge to a fdc facility with rehabilitation. Medically clear for discharge to fdc facility today. [place] from head laceration removed prior to discharge. Pt Condition on Discharge: Stable Discharge Disposition: Discharge to SNF Discharge Time: > 30 minutes Discharge Instructions DIET: Follow Instructions for: As Tolerated, No Restrictions Activities you can perform: Regular-No Restrictions Follow up Referrals: PCP Follow-up - 1 Week New Medications: Clonidine (Catapres) 0.1 Mg Tab 0.1 MG PO Q6H PRN SBP>160, DBP>90 #60 TAB Lisinopril (Lisinopril) 20 Mg Tab 40 MG PO DAILY Blood Pressure Management #30 TAB Metoprolol Tartrate (Metoprolol Tartrate) 25 Mg Tab 50 MG PO BID Blood Pressure Management #60 TAB Sennosides (Senna Lax) 8.6 Mg Tab 17.2 MG PO Q12HR PRN MODERATE - SEVERE CONSTIPATION #30 TAB Continued Medications: Cetirizine HCl (Zyrtec) 10 Mg Tablet 10 MG PO DAILY Cholecalciferol (Vitamin D3) 50,000 Unit Cap 95353 UNITS PO WEEKLY Nutritional Supplement Days 28 Ref 0 CAP Hydralazine HCl (Hydralazine HCl) 50 Mg Tablet 50 MG PO BID NEB Blood Pressure Management Insulin Glargine Inj (Lantus Inj) 100 Unit/Ml Inj 60 UNITS SQ HS Blood Sugar Management Multivit-Min/FA/Lycopen/Lutein (A Thru Z Select Multivit Tab) 1 Each Tablet 1 TAB PO DAILY Ropinirole (Requip) 3 Mg Tab 3 MG PO TID Restless Leg #90 Ref 0 TAB Tamsulosin (Tamsulosin) 0.4 Mg Cap 0.4 MG PO HS #30 Ref 0 CAP Discontinued Medications: Metoprolol Tartrate (Metoprolol Tartrate) 25 Mg Tab 12.5 MG PO DAILY #30 Ref 0 TAB Stephon Yang MD Jul 07, 2017 10:16
[2017-07-07 11:49] VITALS: BP 131/60; PULSE 60; RESP 16; TEMP 98.1; O2SAT 95
== END 2017-07-07 12:14 | DRG 86 ==
LOC: NEPC 10:36 → NEDA 13:35 → N03A 22:20 → N05B 07-04 14:56
PROVIDERS: ADMIT Hospitalist; ATTEND Hospitalist
PROC: 0HQ0XZZ Repair Scalp Skin, External Approach (ICD-10-PCS; principal; 2017-07-02)
DX: S06.6X0A Traumatic subarachnoid hemorrhage without loss of consciousness, initial encounter (principal); I42.9 Cardiomyopathy, unspecified; E11.22 Type 2 diabetes mellitus with diabetic chronic kidney disease; E11.40 Type 2 diabetes mellitus with diabetic neuropathy, unspecified; D69.6 Thrombocytopenia, unspecified; E66.01 Morbid (severe) obesity due to excess calories; S01.01XA Laceration without foreign body of scalp, initial encounter; D64.9 Anemia, unspecified; E55.9 Vitamin D deficiency, unspecified; W18.2XXA Fall in (into) shower or empty bathtub, initial encounter; Y93.E1 Activity, personal bathing and showering; Y92.091 Bathroom in other non-institutional residence as the place of occurrence of the external cause; R26.9 Unspecified abnormalities of gait and mobility; M25.512 Pain in left shoulder; Z79.4 Long term (current) use of insulin; J30.2 Other seasonal allergic rhinitis; Z83.3 Family history of diabetes mellitus; Z80.1 Family history of malignant neoplasm of trachea, bronchus and lung; Z80.42 Family history of malignant neoplasm of prostate; Z80.8 Family history of malignant neoplasm of other organs or systems; F17.210 Nicotine dependence, cigarettes, uncomplicated; K29.70 Gastritis, unspecified, without bleeding; M54.2 Cervicalgia; G89.29 Other chronic pain; M54.9 Dorsalgia, unspecified; E78.00 Pure hypercholesterolemia, unspecified; I12.9 Hypertensive chronic kidney disease with stage 1 through stage 4 chronic kidney disease, or unspecified chronic kidney disease; N18.9 Chronic kidney disease, unspecified
CPT/HCPCS: 12001; 70450; 70551; 71010; 72125; 76937; 80048; 80053; 80061; 82550; 82552; 82948; 84484; 85025; 85027; 85610; 85730; 93005; 93306; 93880; 94664; C9113; J1815; J2060; J2270; J7030